=== PATIENT | female | born 1965 | race Caucasian/White ===

== ENCOUNTER 2018-02-23 15:24 | Observation (INO) ==
[2018-02-23] MEDS ORDERED: Aspirin 325 MG TABLET PO ONE (15:51)
[2018-02-23] MEDS ORDERED: Nitroglycerin 0.4 MG TAB.SUBL SL PRN (15:55)
--- NOTE | 2018-02-23 16:30 | Emergency Department Note ---
Disposition Clinical Impression: Chest pain Qualifiers: Chest pain type: unspecified Qualified Code(s): R07.9 - Chest pain, unspecified Disposition: Admitted As Inpatient Condition: Fair Referrals: Daniel Melendrez MD [Primary Care Provider] - Forms: ED Satisfaction Letter General Adult HPI - General Chief complaint: ED Chest Pain Stated complaint: "CP" Time Seen by Provider: 02/23/18 15:50 Source: patient Mode of arrival: ambulatory Limitations: no limitations Nursing Notes Reviewed: Yes Vital Signs Reviewed: Yes - History of Present Illness HPI Narrative: 52-year-old female with no significant past medical history and is a current smoker presenting to the emergency department with chief complaint of substernal chest pain. She states the pain started approximately 1 hour prior to arrival. Radiated into the left arm and up the left side of the neck into her jaw. She states she got very pale and nauseous during this episode. Denies any vomiting. Patient denies any previous episodes like this. She states she was sitting in her car when she started feeling the pain. At this time she is still having some substernal pressure. Patient denies any history of cardiac disease or being on any anticoagulation. Denies any family history. Pain Scale: 5 - Related Data Home Medications Medication Instructions Recorded Confirmed Sertraline [Zoloft] 50 mg PO DAILY 02/23/18 02/23/18 Allergies Allergy/AdvReac Type Severity Reaction Status Date / Time codeine Allergy Itching Verified 07/25/16 09:55 All systems ED: reviewed and negative except as stated. Constitutional: Denies: fever, chills, weakness Eyes: Reports: as per HPI ENT ED: Reports: as per HPI Cardiovascular: Reports: chest pain. Denies: palpitations, dyspnea on exertion Respiratory: Denies: cough, dyspnea, wheezes Gastrointestinal: Reports: nausea. Denies: abdominal pain, vomiting, diarrhea Genitourinary: Reports: as per HPI Musculoskeletal: Reports: as per HPI Integumentary: Reports: as per HPI Neurological: Denies: numbness, paresthesias Psychiatric: Reports: as per HPI Endocrine: Reports: as per HPI Hematological/Lymphatic: Reports: as per HPI Allergic/Immunologic: Reports: as per HPI Past Medical History - Past Medical History Attestation: Yes The following information was validated with the patient. Medical history: Reports: no medical history, migraine Psychiatric history: Reports: no psych history - Social History Smoking Status: Current every day smoker Smokeless Tobacco Status: No Alcohol use: Reports: none Drug use: Reports: none Physical Exam - General Limitations: no limitations General appearance: alert, in no apparent distress - Head Head exam: atraumatic, normocephalic, normal inspection - Eye Eye exam: Present: normal appearance. Absent: scleral icterus, conjunctival injection - ENT ENT exam: normal exam, mucous membranes moist - Neck Neck exam: Present: normal inspection, full ROM. Absent: tenderness, meningismus - Chest Chest inspection: Present: normal inspection, symmetric chest wall rise. Absent : tenderness, rash - Respiratory Respiratory exam: Present: normal lung sounds bilaterally. Absent: respiratory distress, wheezes - Cardiovascular Cardiovascular exam: Present: regular rate, normal rhythm, normal heart sounds - Abdominal Exam Abdominal exam: Present: soft, Non-Tender. Absent: distention, guarding, rebound - Extremities Exam Extremities exam: Present: normal inspection, full ROM - Neurological Exam Neurological exam: Present: alert, oriented X3 - Psychiatric Psychiatric exam: Present: normal affect, normal mood - Skin Skin exam: Present: warm, intact Course Course Narrative: 52-year-old female presenting for chest pain. In the room patient physical exam benign. She is alert and oriented 3 with stable vital signs. Patient still having some chest pain at this time. We will perform a chest pain workup along with providing her with full dose aspirin and nitroglycerin trial. Disposition most likely admission the pending results. Patient agrees with this plan. - Reevaluation(s) Reevaluation #1: Patient EKG concerning for new T-wave inversions in V3, V4 and V5. Patient's initial laboratory analysis benign. Completed nitroglycerin trial with no relief of chest pressure. Otherwise labs within normal limits. At this time will plan to admit her for further chest pain workup. Patient is alert and oriented 3 with stable vital signs. Patient agrees with this plan. I spoke with the hospitalist litigation services manager Dr. Lacey who agrees to accept the patient at this time. Vital Signs Temperature 98.2 F 02/23/18 15:29 Pulse Rate 82 02/23/18 15:29 Respiratory Rate 16 02/23/18 15:29 Blood Pressure 129/73 02/23/18 15:29 O2 Sat by Pulse Oximetry 98 02/23/18 15:29 Temperature 98.2 F 02/23/18 15:29 Pulse Rate 69 02/23/18 16:38 Respiratory Rate 16 02/23/18 16:38 Blood Pressure 115/74 02/23/18 16:38 O2 Sat by Pulse Oximetry 97 02/23/18 16:38 Oxygen Delivery Oxygen Delivery Room Air Medical Decision Making - Lab Data Result diagrams: 02/23/18 15:34 02/23/18 15:34 Lab Results 02/23/18 02/23/18 02/23/18 Range/Units 15:34 15:34 16:32 WBC 8.1 (4.3-11.1) K/mcL RBC 4.41 (3.82-4.97) M/mcL Hgb 14.2 (11.5-15.4) g/dL Hct 42.2 (35.3-44.9) % MCV 95.7 (83.0-100.0) fL MCH 32.2 (28.0-33.3) pg MCHC 33.6 (31.6-35.5) g/dL RDW 12.8 (11.5-14.5) % Plt Count 247 (140-400) K/mcL MPV 10.4 (9.4-12.4) fL Immature Gran % 0.2 (0-4) % Seg Neutrophils % 59.4 % Lymphocytes % 30.9 % Monocytes % 6.8 % Eosinophils % 2.2 % Basophils % 0.5 % Neutrophils # 4.8 (1.6-8.9) K/mcL Lymphocytes # 2.5 (0.6-4.6) K/mcL Monocytes # 0.6 (0.0-1.3) K/mcL Eosinophils # 0.2 (0.0-0.6) K/mcL Basophils # 0.0 (0.0-0.2) K/mcL D-Dimer 220 (0-500) ng/mLFEU Sodium 138 (136-145) mEq/L Potassium 3.6 (3.5-5.1) mEq/L Chloride 106 (98-107) mEq/L Carbon Dioxide 25 (23-29) mEq/L BUN 7 (6-20) mg/dL Creatinine 0.71 (0.60-1.20) mg/dL Est GFR ( Amer) > 60 (> 60) Est GFR (Non-Af Amer) > 60 (> 60) BUN/Creatinine Ratio 10 (6-26) Glucose 99 (70-105) mg/dL Calculated Osmolality 284 (280-300) Calcium 9.4 (8.6-10.3) mg/dL Troponin I < 0.03 (< 0.04) ng/mL - EKG Data EKG #1 EKG attestation: Yes I reviewed and interpreted this EKG. EKG results narrative: Sinus rhythm. T-wave inversion noted in aVF, 3, V3, V4 and V5. 80 bpm. AL interval 163, QRS 91, QTC 410. No sign of acute ST segment elevation. Compared to previous EKG completed on 06/05/2006 new T-wave inversions noted.
[2018-02-23 16:43] LABS: Basophils % 0.5 %; Eosinophils # 0.2 K/mcL (0.0-0.6); Eosinophils % 2.2 %; Hematocrit 42.2 % (35.3-44.9); Hemoglobin 14.2 g/dL (11.5-15.4); Immature Granulocytes % 0.2 % (0-4); Lymphocytes # 2.5 K/mcL (0.6-4.6); Lymphocytes % 30.9 %; Mean Corpuscular HGB Conc 33.6 g/dL (31.6-35.5); Mean Corpuscular Hemoglobin 32.2 pg (28.0-33.3); Mean Corpuscular Volume 95.7 fL (83.0-100.0); Mean Platelet Volume 10.4 fL (9.4-12.4); Monocytes # 0.6 K/mcL (0.0-1.3); Monocytes % 6.8 %; Neutrophils # 4.8 K/mcL (1.6-8.9); Platelet Count 247 K/mcL (140-400); Red Blood Count 4.41 M/mcL (3.82-4.97); Red Cell Distribution Width 12.8 % (11.5-14.5); Segmented Neutrophils % 59.4 %
[2018-02-23 17:10] LABS: BUN/Creatinine Ratio 10 (6-26); Blood Urea Nitrogen 7 mg/dL (6-20); Calcium 9.4 mg/dL (8.6-10.3); Carbon Dioxide 25 mEq/L (23-29); Chloride 106 mEq/L (98-107); Glucose 99 mg/dL (70-105); Osmolality,Calculated 284 (280-300); Potassium 3.6 mEq/L (3.5-5.1); Sodium 138 mEq/L (136-145); Troponin I < 0.03 ng/mL (< 0.04); eGFR For Non-African Americans > 60 (> 60)
[2018-02-23] MEDS ORDERED: Acetaminophen 325 MG TABLET PO PRN (18:07)
[2018-02-23] MEDS ORDERED: Naloxone 0.4 MG/ML INJ IVP PRN (18:07)
--- NOTE | 2018-02-23 18:15 | Emergency Department Note ---
Disposition Clinical Impression: Chest pain Qualifiers: Chest pain type: other chest pain Qualified Code(s): R07.89 - Other chest pain Disposition: Admitted As Inpatient Condition: Fair Chest Pain HPI - General Chief Complaint: ED Chest Pain Stated Complaint: "CP" Time Seen by Provider: 02/23/18 15:50 Source: patient Mode of arrival: ambulatory Limitations: no limitations - History of Present Illness Severity scale (1-10): 0 - Related Data Home Medications Medication Instructions Recorded Confirmed Sertraline [Zoloft] 50 mg PO DAILY 02/23/18 02/23/18 Allergies Allergy/AdvReac Type Severity Reaction Status Date / Time codeine Allergy Itching Verified 07/25/16 09:55 iodine AdvReac Hives Uncoded 02/23/18 18:06 Constitutional: Denies: fever, chills, weakness Eyes: Reports: as per HPI ENT ED: Reports: as per HPI Cardiovascular: Reports: chest pain. Denies: palpitations, dyspnea on exertion Respiratory: Denies: cough, dyspnea, wheezes Gastrointestinal: Reports: nausea. Denies: abdominal pain, vomiting, diarrhea Genitourinary: Reports: as per HPI Musculoskeletal: Reports: as per HPI Integumentary: Reports: as per HPI Neurological: Denies: numbness, paresthesias Psychiatric: Reports: as per HPI Endocrine: Reports: as per HPI Hematological/Lymphatic: Reports: as per HPI Allergic/Immunologic: Reports: as per HPI Chest Pain PMH - Past Medical History Medical history: Reports: no medical history, migraine Psychiatric history: Reports: no psych history - Social History Smoking Status: Current every day smoker Alcohol use: Reports: none Drug use: Reports: none Physical Exam - General Limitations: no limitations General appearance: alert, in no apparent distress Course Vital Signs Temperature 98.2 F 02/23/18 15:29 Pulse Rate 82 02/23/18 15:29 Respiratory Rate 16 02/23/18 15:29 Blood Pressure 129/73 02/23/18 15:29 O2 Sat by Pulse Oximetry 98 02/23/18 15:29 Temperature 98.5 F 02/23/18 18:39 Pulse Rate 70 02/23/18 18:39 Respiratory Rate 17 02/23/18 18:39 Blood Pressure 96/62 02/23/18 18:39 O2 Sat by Pulse Oximetry 95 02/23/18 18:39 Oxygen Delivery Oxygen Delivery Room Air Chest Pain - Lab Data Result diagrams: 02/23/18 15:34 02/23/18 15:34 Lab Results 02/23/18 02/23/18 02/23/18 Range/Units 15:34 15:34 16:32 WBC 8.1 (4.3-11.1) K/mcL RBC 4.41 (3.82-4.97) M/mcL Hgb 14.2 (11.5-15.4) g/dL Hct 42.2 (35.3-44.9) % MCV 95.7 (83.0-100.0) fL MCH 32.2 (28.0-33.3) pg MCHC 33.6 (31.6-35.5) g/dL RDW 12.8 (11.5-14.5) % Plt Count 247 (140-400) K/mcL MPV 10.4 (9.4-12.4) fL Immature Gran % 0.2 (0-4) % Seg Neutrophils % 59.4 % Lymphocytes % 30.9 % Monocytes % 6.8 % Eosinophils % 2.2 % Basophils % 0.5 % Neutrophils # 4.8 (1.6-8.9) K/mcL Lymphocytes # 2.5 (0.6-4.6) K/mcL Monocytes # 0.6 (0.0-1.3) K/mcL Eosinophils # 0.2 (0.0-0.6) K/mcL Basophils # 0.0 (0.0-0.2) K/mcL D-Dimer 220 (0-500) ng/mLFEU Sodium 138 (136-145) mEq/L Potassium 3.6 (3.5-5.1) mEq/L Chloride 106 (98-107) mEq/L Carbon Dioxide 25 (23-29) mEq/L BUN 7 (6-20) mg/dL Creatinine 0.71 (0.60-1.20) mg/dL Est GFR ( Amer) > 60 (> 60) Est GFR (Non-Af Amer) > 60 (> 60) BUN/Creatinine Ratio 10 (6-26) Glucose 99 (70-105) mg/dL Calculated Osmolality 284 (280-300) Calcium 9.4 (8.6-10.3) mg/dL Troponin I < 0.03 (< 0.04) ng/mL Attestation Statement - Attestation Attestation: Resident Attestation: I examined this patient and my medical decision making was reviewed with the Resident Physician. I agree with the documented findings, disposition and treatment plan as described except to the extent set forth below. We independently had [id number] contact with the patient. Patient with no significant past medical history presents today for evaluation of chest pain. Chest pain started an hour prior to arrival. Describes as pressure inside of her chest region and left arm as well as the job. The patient states that she has not noticed any specific aggravating or alleviating symptoms. Patient states that when she exerts herself such as walking in the house or upon walking into the emergency department she became lightheaded like she might pass out. Patient has had associated nausea. Patient is awake alert oriented 3 in no acute distress, regular rate and rhythm, clear to auscultation bilaterally, no significant pitting edema. EKG shows T-wave inversion to the inferior leads new from previous EKG. Patient was given nitroglycerin without any significant relief. Aspirin was given. Patient given as the hospital service for repeat troponins and further cardiac testing. Please see resident note for further details and disposition.
--- NOTE | 2018-02-23 18:20 | Internal Med History&Physical ---
Date of Encounter: 02/23/18 Time of Encounter: 17:30 Internal Medicine - H&P: HPI Chief complaint: CP Admitted From: Emergency Dept Plans for Post Hospital Care: Home History of present illness: Ms. Nation is a 52 year old female w/PMH of migraines, anxiety, depression, and current tobacco abuse presents from the ED w/CC of CP that began this afternoon while pt. was riding in a car. Pt. reports pain as constant left-sided chest pain that presented as sharp, stabbing pain w/radiation to left arm, and left neck. Pain was helped by 3 SL nitro and was reduced to pressure in left chest. No aggravating factors. BP was 148/88 when she got home. Associated sx: SOB, dizziness, and nausea. Patient denies recent illness, fever, chills, vomiting, diaphoresis, changes in vision, headache, unusual bleeding, abdominal pain, diarrhea, constipation, numbness, tingling, pre-syncope, or syncope. Past Med Surg Social Fam HX - Past Medical History Source: patient, old records reviewed, obtained from family Medical history: migraine Psychiatric history: anxiety, depression - Past Surgical History Additional surgical history: cc-section. hyst. t&A. tubal. Rt ganglion cyst - Social History Smoking Status: Current every day smoker Packs per day: 1 PPD Smokeless Tobacco Status: No Alcohol use: none Drug use: none Occupational status: employed Current living situation: Home, With Family Activity Level: Independent ambulation Recent Out of Country Travel Within the Last 8 Weeks: No Exposure or Possible Exposure to Illness During Travel: No - Family History Father Race: Family Member Ethnicity: Non- Living Status: Age at : 65 Cause of : Motorcycle accident Mother Race: Family Member Ethnicity: Non- Living Status: Age at : 60 Cause of : COPD Hx Family Respiratory Disorders: Yes (COPD) Brother Race: Family Member Ethnicity: Non- Living Status: Still Living Hx Family Medical Disorders: No Sister Race: Family Member Ethnicity: Non- Living Status: Still Living Hx Family Medical Disorders: No Internal Medicine - H&P: Meds Sertraline [Zoloft] 50 mg PO DAILY 02/23/18 [History] 3 Allergy/AdvReac Type Severity Reaction Status Date / Time codeine Allergy Itching Verified 07/25/16 09:55 iodine AdvReac Hives Uncoded 02/23/18 18:06 All Systems PM: A 10-system review of systems was performed and is negative for pertinent findings except as documented above in the HPI. - Constitutional Constitutional: as per HPI, no chills, no fever(s), no night sweats - EENT Eyes: no change in vision, no discharge, no pain, no photophobia Ears: no ear discharge, no ear pain, no tinnitus Nose, mouth and throat: no dysphagia, no nasal discharge, no neck pain, no sore throat - Breasts Breasts: as per HPI - Cardiovascular Cardiovascular ROS IM: as per HPI, chest pain, dyspnea, dyspnea on exertion, no diaphoresis, no lightheadedness, no palpitations, no syncope - Respiratory Respiratory: as per HPI, dyspnea, dyspnea on exertion, no cough, no wheezing, no excessive phlegm production - Gastrointestinal Gastrointestinal: as per HPI, nausea, no abdominal pain, no diarrhea, no hematemesis, no hematochezia, no melena, no vomiting - Genitourinary Genitourinary: no change in urinary stream, no dysuria, no flank pain, no hematuria Menstruation: as per HPI - Musculoskeletal Musculoskeletal ROS IM: no numbness, no tingling - Integumentary Integumentary IM: no rash, no unusual bruising - Neurological Neurological ROS: as per HPI, dizziness, no confusion, no convulsions, no focal weakness, no numbness, no tingling, no tremor(s) - Psychiatric Psychiatric: as per HPI, anxiety, depression - Endocrine Endocrine IM: as per HPI - Hematologic/Lymphatic Hematologic/Lymphatic: no easy bruising - Allergic/Immunologic Allergic/Immunologic: as per HPI - Constitutional Vitals: Temp Pulse Resp BP Pulse Ox 98.2 F 78 16 119/73 97 02/23/18 15:29 02/23/18 17:54 02/23/18 17:54 02/23/18 17:54 02/23/18 17:54 General appearance: Present: cooperative, A&O X 3, pleasant, no acute distress, answers questions appropriately Exam: Patient examined at bedside in ED. Pt. resting in bed and states that she is now only having pressure in left chest. SL Nitro reduced sharp/stabbing pain. Denies SOB or nausea on exam. States she has chronically low BP. Current tobacco abuse smoking 1 PPD. Denies any other sx or complaints at this time. VS : 98.5F temp, HR 78, RR 16, BP 119/73, SpO2 97% on RA. - Head Head exam: Present: atraumatic, normocephalic - Eye Eye exam: Present: PERRL, conjuntiva pink, sclera anicteric Pupils: Present: PERRL - ENT ENT exam: Present: normal exam - Neck Neck exam general surgery: Present: normal inspection - Respiratory Respiratory exam: Present: CTAB. Absent: accessory muscle use, rales, rhonchi, wheezes - Cardiovascular Cardiovascular exam: Present: RRR, +S1, +S2. Absent: diastolic murmur, gallop, rubs, systolic murmur - GI/Abdominal GI/Abdominal exam: Present: normal bowel sounds, soft, no peritoneal signs. Absent: distended, tenderness - Rectal Rectal exam: Present: deferred - Additional comments: exam deferred. - Extremities Exam Extremities exam: Present: warm, radial pulses palpable and symmetrical. Absent : calf tenderness, cyanotic, pedal edema - Back Exam Back exam: Present: normal inspection - Neurological Exam Neurological exam: Present: CN II-XII intact, oriented X3, no focal deficits. Absent: pronater drift, facial droop, speech deficit - Psychiatric Psychiatric exam: Present: normal affect, normal mood - Skin Skin exam: Present: dry, intact Internal Med - H&P Results - Labs CBC & Chem 7: 02/23/18 15:34 02/23/18 15:34 - EKG Data EKG shows normal: sinus rhythm - EKG Data Prior EKG available for review: yes EKG comments: 02/23/18 18:24 EKG dated 06/05/2006 shows sinus rhythm and normal ECG. EKG dated 02/23/2018 shows sinus rhythm with nonspecific T-wave abnormality. Borderline ECG. - Diagnostic Studies Chest x-ray Additional comments: Impressions Chest X-Ray 02/23/18 15:34 IMPRESSION: No acute process. D/ / Rio Peñaloza MD / Rio Peñaloza MD Interpreting Provider: Rio Peñaloza MD - Assessment and plan (1) Chest pain Current Visit: Yes Status: Acute Assessment and plan: Acute CP that began this afternoon while pt. was riding in a car. Pt. reports pain as constant left-sided chest pain that presented as sharp, stabbing pain w/ radiation to left arm, and left neck. Pain was helped by 3 SL nitro and was reduced to pressure in left chest. No aggravating factors. BP was 148/88 when she got home. Associated sx: SOB, dizziness, and nausea. Pt. reports she had stress test in 2006 w/o stents placed. No recent cardiac w/u. Initial troponin < 0.03. Will trend. Continuous cardiac telemetry. Echocardiogram. NPO @ midnight for a.m. stress test if troponins remain WNL. Pt. is allergic to iodine so exercise stress is ordered at this time. However, pt. would prefer nuclear stress test because she fears she cannot complete exercise. Stress Lab needs to confirm contents of nuclear dye is iodine free before stress test is switched to pharmacologic. ASA. 80 mg Lipitor ONCE. SL Nitro PRN. Consider adding Cardiology consult if troponins, Echocardiogram, and/or stress test results abnormal. Pt. is high risk for cardiac event and further morbidity based on current CP @ rest, no recent cardiac w/u requiring Echocardiogram and stress test, similar CP in 2006 warranting stress test, and current tobacco abuse. Observation. Qualifiers: Chest pain type: other chest pain Qualified Code(s): R07.89 - Other chest pain; R07.8 - Other chest pain (2) Dizziness Current Visit: Yes Status: Acute Assessment and plan: Acute dizziness accompanying CP sx. Pt. states she "could feel her heartbeat in her neck." Bilateral carotid Dopplers ordered. Falls precautions. (3) SOB (shortness of breath) Current Visit: Yes Status: Acute Assessment and plan: Acute SOB accompanying CP sx. Pt. denies home O2 use. Supplemental O2 w/ titration and SpO2 monitoring PRN. (4) Nausea Current Visit: Yes Status: Acute Assessment and plan: Acute nausea accompanying CP sx. IVP Phenergan 12.5 mg PRN for N/V. (5) Anxiety and depression Current Visit: Yes Status: Chronic Assessment and plan: Hx of chronic anxiety and depression. Continue pts. Zoloft. (6) Hx of migraines Current Visit: Yes Status: Chronic Assessment and plan: Hx of migraines. Pt. states she hasn't had one in some time. Will add fioricet or imitrex if warranted while admitted. (7) DVT prophylaxis Current Visit: Yes Status: Acute Assessment and plan: Heparin 5,000 units SQ Q8HR for DVT prophylaxis. Monitor pt. for signs of bleeding. - Time Spent With Patient Total time spent is greater than 50% in coordination of care (as documented) at patient's floor/unit and/or counseling patient: Greater than 35 minutes
[2018-02-23] MEDS ORDERED: *HR* Promethazine 25 MG/ML VIAL IVP PRN (18:28)
[2018-02-23] MEDS: *HR* Heparin 5,000 UNIT/ML VIAL SQ SCH (20:17)
[2018-02-24 03:56] LABS: Basophils # 0.1 K/mcL (0.0-0.2); Basophils % 0.8 %; Eosinophils # 0.2 K/mcL (0.0-0.6); Eosinophils % 3.5 %; Hematocrit 38.1 % (35.3-44.9); Hemoglobin 12.9 g/dL (11.5-15.4); Immature Granulocytes % 0.2 % (0-4); Lymphocytes # 2.2 K/mcL (0.6-4.6); Lymphocytes % 37.1 %; Mean Corpuscular HGB Conc 33.9 g/dL (31.6-35.5); Mean Corpuscular Hemoglobin 32.3 pg (28.0-33.3); Mean Corpuscular Volume 95.3 fL (83.0-100.0); Mean Platelet Volume 10.5 fL (9.4-12.4); Monocytes # 0.4 K/mcL (0.0-1.3); Monocytes % 7.2 %; Neutrophils # 3.1 K/mcL (1.6-8.9); Platelet Count 226 K/mcL (140-400); Red Cell Distribution Width 13.2 % (11.5-14.5); Segmented Neutrophils % 51.2 %
[2018-02-24 04:22] LABS: BUN/Creatinine Ratio 12 (6-26); Blood Urea Nitrogen 8 mg/dL (6-20); Calcium 9.2 mg/dL (8.6-10.3); Carbon Dioxide 24 mEq/L (23-29); Chloride 108 mEq/L (98-107); Chol/HDL Ratio 3.5 (0-4.9); Cholesterol 170 mg/dL (< 200); Glucose 93 mg/dL (70-105); HDL Cholesterol 49 mg/dL (40-59); LDL Cholesterol,Calculated 106 mg/dL (0-99); Magnesium 2.1 mg/dL (1.6-2.6); Osmolality,Calculated 286 (280-300); Potassium 3.7 mEq/L (3.5-5.1); Sodium 139 mEq/L (136-145); Triglycerides 74 mg/dL (< 150); eGFR For Non-African Americans > 60 (> 60)
[2018-02-24] MEDS: *HR* Heparin 5,000 UNIT/ML VIAL SQ SCH (06:05)
[2018-02-24] MEDS ORDERED: Regadenoson 0.4 MG/5 ML SYRINGE IVP ONE (06:13)
[2018-02-24] MEDS ORDERED: Aspirin Enteric Coated 81 MG Tablet PO SCH (09:00)
[2018-02-24 11:06] LABS: Estimated Average Glucose 105 mg/dl; Hemoglobin A1C 5.3 %
[2018-02-24 11:20] VITALS: BP 120/76
--- NOTE | 2018-02-24 14:38 | Discharge Summary ---
- NOTES TO OUTPATIENT PROVIDER Notes to Outpatient Provider: Incidental finding of PFO on echo will need to follow-up with cardiology. Continue with aspirin daily Orders not resulted at time of discharge: Pending orders 02/24/18 05:35 NM priya perf SPECT multi [NM] Routine 02/25/18 04:00 Basic Metabolic Panel AM 0400 Complete Blood Count [HEME] AM 0400 02/26/18 04:00 Basic Metabolic Panel AM 0400 Complete Blood Count [HEME] AM 0400 Date of Encounter: 02/24/18 Time of Encounter: 14:35 - Discharge Diagnosis (1) Chest pain Priority: Primary Status: Acute Qualifiers: Chest pain type: other chest pain Qualified Code(s): R07.89 - Other chest pain; R07.8 - Other chest pain (2) SOB (shortness of breath) Priority: Secondary Status: Acute (3) Nausea Priority: Secondary Status: Acute (4) Anxiety and depression Priority: Secondary Status: Chronic (5) Hx of migraines Priority: Secondary Status: Chronic (6) Dizziness Priority: Secondary Status: Acute Hospital course: Ms. Nation is a 52 year old female past medical history of migraines and anxiety depression current tobacco smoker presented to [facility] ED with complaints of chest pain as well as shortness of breath dizziness and nausea. Symptoms were relieved with 3 nitroglycerin. There were no aggravating factors. She did have a chest test approximately 10 years ago which she states was negative. She did undergo nuclear cardiac stress test which was negative for any ischemia or infarct. Echo was completed which did reveal incidental finding of PFO with a right to left shunt. Troponins were negative [address]-T wave abnormalities. Carotid duplex completed with nonstenotic plaque. Lipid panel was completed slightly elevated LDL. Encouraged patient to stop smoking. No neurological deficits denies any past history of stroke symptoms. She did complain of some dizziness and headache offered patient a CT which she declined. I did discuss with cardiology patient will follow-up as outpatient will continue with aspirin for now. I advised patient to follow up with PCP as well as cardiology. Patient verbalized understanding. Patient is hemodynamically stable and is ready for discharge Discharge discussed with: patient - Time Spent with Patient Total time spent providing and/or coordinating discharge services: - Discharge Medications Prescriptions: Aspirin Enteric Coated [Aspirin EC] 81 mg PO DAILY #30 tablet.dr Home Medications: Sertraline [Zoloft] 50 mg PO DAILY 02/23/18 [History] Aspirin Enteric Coated [Aspirin EC] 81 mg PO DAILY #30 tablet. 02/24/18 [Rx] Allergies/Adverse Reactions: 3 Allergy/AdvReac Type Severity Reaction Status Date / Time iodine AdvReac Hives Uncoded 02/23/18 18:06 Date of admission: 02/23/18 17:31 Primary care physician: Daniel Melendrez MD Discharging clinician: Brissa Ruvalcaba Anticipated date of discharge: 02/24/18 - Constitutional Vitals: Temp Pulse Resp BP Pulse Ox 97.9 F 93 15 120/76 95 02/24/18 11:18 02/24/18 11:18 02/24/18 11:18 02/24/18 11:18 02/24/18 11:18 General appearance: Present: cooperative, A&O X 3, pleasant, no acute distress, answers questions appropriately Exam: see below - Head Head exam: Present: atraumatic, normocephalic - Eye Eye exam: Present: PERRL, conjuntiva pink, sclera anicteric Pupils: Present: PERRL - Neck Neck exam general surgery: Present: supple, trachea midline. Absent: lymphadenopathy - Respiratory Respiratory exam: Present: CTAB. Absent: accessory muscle use, rales, rhonchi, wheezes - Cardiovascular Cardiovascular exam: Present: RRR, +S1, +S2. Absent: diastolic murmur, gallop, rubs, systolic murmur - GI/Abdominal GI/Abdominal exam: Present: normal bowel sounds, soft, no peritoneal signs. Absent: distended, tenderness - Extremities Exam Extremities exam: Present: warm, radial pulses palpable and symmetrical. Absent : calf tenderness, cyanotic, pedal edema - Neurological Exam Neurological exam: Present: CN II-XII intact, oriented X3, no focal deficits. Absent: pronater drift, facial droop, speech deficit - Patient Status Disposition: Home, Self-Care Condition: Fair Functional capacity at discharge: independent ambulation Overall status at discharge: patient is back to baseline - Discharge Instructions Instructions: Aspirin (By mouth), Chest Pain (DC), How to Stop Smoking (DC) Follow Up With: [facility] [Provider Group] - 03/14/18 9:00 am Daniel Melendrez MD [Primary Care Provider] - 03/03/18 8:30 am Forms: ED Satisfaction Letter - Diet and Activity Activity: increase activity as tolerated Diet: low fat, low cholesterol
--- NOTE | 2018-02-27 09:25 | Electrocardiograph Report ---
[place] [id number] Test Date: 2018-02-23 Pat Name: Marzena Nation Department: [id number] Room: 3B36 Gender: F Gill Tender: EKP : [id number] Requested By: Rufino Correa Order Number: [id number] Reading MD: Gray Hernandez Measurements Intervals [place] Rate: 80 P: 45 AL: 163 QRS: 25 QRSD: 91 T: -3 QT: 374 QTc: 410 Interpretive Statements SINUS RHYTHM NONSPECIFIC T-WAVE ABNORMALITY Electronically Signed On 02-27-2018 9:24:11 EDT by Gray Hernandez
== END 2018-02-24 15:39 | disposition home or self-care (01) ==
LOC: EMEROOARM 15:24 → 3BNU 15:24
PROVIDERS: ADMIT Internal Medicine; ATTEND Internal Medicine